=== PATIENT | female | born 1955 | race American Indian/Alaskan Native ===

== ENCOUNTER 2016-10-24 01:02 | Emergency (ER) | payer MEDICAID ==
[2016-10-24 02:38] LABS: Basophils % (Auto) 0.8 % (0.0-1.8); Eosinophils % (Auto) 3.5 % (0.0-4.3); Hematocrit 41.1 % (30.3-42.9); Hemoglobin 12.9 gm/dl (10.1-14.3); Mean Corpuscular HGB Conc 31 % (30-34); Mean Corpuscular Volume 75 fl (79-97); Platelet Count 243 K/mm3 (140-440); Red Cell Distribution Width 14.3 % (13.2-15.2); White Blood Count 7.8 K/mm3 (4.5-11.0)
[2016-10-24 03:00] LABS: BUN/Creatinine Ratio 26.66; Blood Urea Nitrogen 24 mg/dL (7-17); Calcium 9.9 mg/dL (8.4-10.2); Carbon Dioxide 26 mmol/L (22-30); Chloride 100.1 mmol/L (98-107); Glucose 233 mg/dL (65-100); Mean Corpuscular Hemoglobin 24 pg (28-32); Potassium 4.4 mmol/L (3.6-5.0); Sodium 143 mmol/L (137-145)
[2016-10-24 04:14] LABS: Anion Gap 21 mmol/L
--- NOTE | 2016-10-24 09:47 | XRay Report ---
CHEST TWO VIEWS: 10/24/16 01:02:00 CLINICAL: Shortness of breath. COMPARISON: 09/03/13 FINDINGS: Normal heart and pulmonary vasculature. Numerous bilateral hilar and mediastinal calcified granulomata are unchanged compared to the previous exam. The lungs are normally expanded and clear. The bones and soft tissues are normal. IMPRESSION: Old granulomatous disease.No acute cardiopulmonary process.
[2016-10-24] MEDS ORDERED: ZESTRIL PO ONE (10:15)
[2016-10-24] MEDS ORDERED: HCTZ PO ONE (10:15)
--- NOTE | 2016-10-24 10:19 | Emergency Department Report ---
ED General Adult HPI - General Chief complaint: Dyspnea/Respdistress Stated complaint: DIZZY/WEAKNESS/CHEST FLUTTER/WEAKNESS Time Seen by Provider: 10/24/16 10:04 Source: patient Mode of arrival: Ambulatory Limitations: No Limitations - History of Present Illness Initial comments: 61-year-old female presents to the emergency department complaining of approximately 5 days of nasal congestion, body aches, lightheadedness, chest fluttering, and cough. Cough has been nonproductive. She denies fever or chills. Patient states that she has not loss consciousness. She does report that her blood sugars have been running high. Symptoms became worse yesterday and the patient came to the hospital for evaluation. There are no other complaints. -: Gradual, days(s) (5) Severity scale (0 -10): 0 Consistency: constant Improves with: none Worsens with: none Treatments Prior to Arrival: none - Related Data Home Medications Medication Instructions Recorded Confirmed Last Taken Simvastatin [Zocor TAB] 20 mg PO QHS 10/24/16 10/24/16 10/23/16 Previous Rx's Medication Instructions Recorded Last Taken Type Lisinopril/Hydrochlorothiazide 1 tab PO DAILY #30 tablet 10/11/14 10/23/16 Rx [Zestoretic 20-25 mg] metFORMIN [Glucophage] 500 mg PO BID #60 tablet 10/11/14 10/23/16 Rx Naproxen [Naprosyn TAB] 500 mg PO BID #20 tablet 03/18/15 10/23/16 Rx traMADol [Ultram 50 MG tab] 50 mg PO Q8H PRN #30 tablet 03/18/15 Unknown Rx Azithromycin [Zithromax Z-CROW] 250 mg PO DAILY #6 tablet 10/24/16 Unknown Rx Benzonatate [Tessalon Perles] 100 mg PO Q8HR #20 capsule 10/24/16 Unknown Rx Glimepiride [Amaryl] 4 mg PO BID #60 tablet 10/24/16 Unknown Rx traMADol [Ultram 50 MG tab] 50 mg PO TID PRN #20 tablet 10/24/16 Unknown Rx Allergies Allergy/AdvReac Type Severity Reaction Status Date / Time No Known Allergies Allergy Verified 10/15/16 11:15 ED Review of Systems ROS: Stated complaint: DIZZY/WEAKNESS/CHEST FLUTTER/WEAKNESS Other details as noted in HPI Comment: All other systems reviewed and negative ENT: congestion Respiratory: cough Cardiovascular: palpitations, syncope (lightheadedness only) Musculoskeletal: myalgia ED Past Medical Hx - Past Medical History Previous Medical History?: Yes Hx Hypertension: Yes Hx CVA: No Hx Heart Attack/AMI: No Hx Congestive Heart Failure: No Hx Diabetes: Yes Hx Deep Vein Thrombosis: No Hx Pulmonary Embolism: No Hx GERD: No Hx Liver Disease: No Hx Renal Disease: No Hx Sickle Cell Disease: No Hx Arthritis: Yes Hx Headaches / Migraines: No Hx Seizures: No Hx Kidney Stones: No Hx Psychiatric Treatment: No Hx Asthma: No Hx COPD: No Hx Tuberculosis: No Hx Dementia: No Hx HIV: No Additional medical history: SARCODOSIS - Surgical History Past Surgical History?: Yes Hx Coronary Stent: No Hx Open Heart Surgery: No Hx Pacemaker: No Hx Internal Defibrillator: No Hx Cholecystectomy: No Hx Appendectomy: No Hx Breast Surgery: No Additional Surgical History: TUBAL LIGATION - Family History Family history: no significant - Social History Smoking Status: Never Smoker Substance Use Type: Prescribed, Other - Medications Home Medications: Home Medications Medication Instructions Recorded Confirmed Last Taken Type Lisinopril/Hydrochlorothiazide 1 tab PO DAILY #30 tablet 10/11/14 10/24/1610/23 Rx [Zestoretic 20-25 mg] metFORMIN [Glucophage] 500 mg PO BID #60 tablet 10/11/14 10/24/16 10/23/16 Rx Naproxen [Naprosyn TAB] 500 mg PO BID #20 tablet 03/18/15 10/24/16 10/23/16 Rx traMADol [Ultram 50 MG tab] 50 mg PO Q8H PRN #30 tablet 03/18/15 Unknown Rx Azithromycin [Zithromax Z-CROW] 250 mg PO DAILY #6 tablet 10/24/16 Unknown Rx Benzonatate [Tessalon Perles] 100 mg PO Q8HR #20 capsule 10/24/16 Unknown Rx Glimepiride [Amaryl] 4 mg PO BID #60 tablet 10/24/16 Unknown Rx Simvastatin [Zocor TAB] 20 mg PO QHS 10/24/16 10/24/16 10/23/16 History traMADol [Ultram 50 MG tab] 50 mg PO TID PRN #20 tablet 10/24/16 Unknown Rx ED Physical Exam - General Limitations: No Limitations General appearance: alert, in no apparent distress - Head Head exam: Present: atraumatic, normocephalic - Eye Eye exam: Present: normal appearance, PERRL, EOMI - ENT ENT exam: Present: normal exam, normal orophraynx, mucous membranes moist - Neck Neck exam: Present: normal inspection, full ROM. Absent: tenderness - Respiratory Respiratory exam: Present: normal lung sounds bilaterally. Absent: respiratory distress - Cardiovascular Cardiovascular Exam: Present: normal rhythm, tachycardia, normal heart sounds - GI/Abdominal GI/Abdominal exam: Present: soft, normal bowel sounds. Absent: distended, tenderness - Extremities Exam Extremities exam: Present: normal inspection, full ROM. Absent: tenderness - Back Exam Back exam: Present: normal inspection, full ROM. Absent: tenderness - Neurological Exam Neurological exam: Present: alert, oriented X3. Absent: motor sensory deficit - Skin Skin exam: Present: warm, dry, intact ED Course Vital Signs 10/24/16 10/24/16 10/24/16 01:20 09:14 09:24 Temperature 98.6 F 98.2 F Pulse Rate 111 H 102 H 105 H Respiratory 10 L 20 Rate Blood Pressure 155/97 Blood Pressure 156/88 [Right] O2 Sat by Pulse 100 100 100 Oximetry 10/24/16 10/24/16 10/24/16 10:00 10:32 10:45 Temperature Pulse Rate 97 H 96 H 96 H Respiratory 12 Rate Blood Pressure 149/82 148/79 Blood Pressure [Right] O2 Sat by Pulse 100 Oximetry ED Medical Decision Making - Lab Data Result diagrams: 10/24/16 02:25 10/24/16 02:25 - EKG Data -: EKG Interpreted by [facility] EKG shows normal: sinus rhythm, axis, ST-T waves Rate: tachycardia - EKG Data When compared to previous EKG there are: no significant change Interpretation: unchanged when compared t (09/03/2013), other (sinus tachycardia with right bundle branch block) - Radiology Data Radiology results: report reviewed, image reviewed Chest x-ray reveals old granulomatous disease changes with no acute cardiopulmonary abnormality. - Medical Decision Making Lab and imaging results reviewed and discussed with the patient. Patient will be discharged home at this time supportive care. Due to the patient's comorbidities including diabetes and sarcoidosis, the patient will be placed on a Z-Crow. Refills also been prescribed for the patient's glyburide and ultram. - Differential Diagnosis pneumonia, acute bronchitis, atypical chest pain Critical care attestation.: If time is entered above; I have spent that time in minutes in the direct care of this critically ill patient, excluding procedure time. ED Disposition Clinical Impression: Acute bronchitis Qualifiers: Bronchitis organism: unspecified organism Qualified Code(s): J20.9 - Acute bronchitis, unspecified Disposition: DISCHARGED TO HOME OR SELFCARE Is pt being admited?: No Condition: Stable Instructions: Acute Bronchitis (ED) Prescriptions: Glimepiride [Amaryl] 4 mg PO BID #60 tablet Benzonatate [Tessalon Perles] 100 mg PO Q8HR #20 capsule traMADol [Ultram 50 MG tab] 50 mg PO TID PRN #20 tablet PRN Reason: Pain Azithromycin [Zithromax Z-CROW] 250 mg PO DAILY #6 tablet Referrals: PRIMARY CARE, [Primary Care Provider] - 3-5 Days Time of Disposition: 11:18
[2016-10-24 11:34] VITALS: BP 124/78
== END 2016-10-24 11:34 | disposition home or self-care (01) ==
LOC: ED 01:02
DX: J20.9 Acute bronchitis, unspecified (principal); I10 Essential (primary) hypertension; E11.9 Type 2 diabetes mellitus without complications; M19.90 Unspecified osteoarthritis, unspecified site; Z98.51 Tubal ligation status
CPT/HCPCS: 36415; 71020; 80048; 82962; 84443; 84484; 85025; 99284

== ENCOUNTER 2017-05-14 17:26 | Emergency (ER) | payer MEDICAID ==
[2017-05-14 20:16] VITALS: BP 140/91
[2017-05-14] MEDS ORDERED: NORCO 5/325 PO ONE (20:48)
--- NOTE | 2017-05-14 21:13 | Emergency Department Report ---
ED General Adult HPI - General Chief complaint: Pain General Stated complaint: HIP BACK PAIN Time Seen by Provider: 05/14/17 20:21 Source: patient Mode of arrival: Ambulatory Limitations: No Limitations - History of Present Illness Initial comments: 62-year-old female with a past medical history of arthritis, diabetes, hypertension, sarcoidosis, and chronic pain presents to the hospital with complaints of generalized arthralgias. Patient has pain to right hip, lower back, and multiple joints. Similar pain in the past secondary to arthritis. Patient takes tramadol 50 mg as needed for pain. Patient has been slicing the medication and have been noted to make it last longer. She ran out of the medication 3 days ago. Since then her pain has worsened causing a decrease in her appetite and elevation in her blood pressure. No reports of fever, chills, or dysuria. Patient is scheduled to see a pain management doctor on May 27. She has been taking Naprosyn without relief since running out of tramadol. Pain is rated 9/10 in intensity, constant, aching, and worse and movement. Patient states she's been taking tramadol for pain since 1993. Severity scale (0 -10): 10 - Related Data Home Medications Medication Instructions Recorded Confirmed Last Taken Loratadine 10 mg PO DAILY 05/14/17 05/14/17 Unknown metFORMIN [Glucophage] 1,000 mg PO BID 05/14/17 05/14/17 Unknown Previous Rx's Medication Instructions Recorded Last Taken Type Lisinopril/Hydrochlorothiazide 1 tab PO DAILY #30 tablet 10/11/14 10/23/16 Rx [Zestoretic 20-25 mg] Naproxen [Naprosyn TAB] 500 mg PO BID #20 tablet 03/18/15 10/23/16 Rx Glimepiride [Amaryl] 4 mg PO BID #60 tablet 10/24/16 Unknown Rx traMADol [Ultram 50 MG tab] 50 mg PO TID PRN #30 tablet 05/14/17 Unknown Rx Allergies Allergy/AdvReac Type Severity Reaction Status Date / Time No Known Allergies Allergy Verified 10/15/16 11:15 ED Review of Systems ROS: Stated complaint: HIP BACK PAIN Other details as noted in HPI Comment: All other systems reviewed and negative Other: Constitutional: No fevers chills Eyes: No eye pain visual changes ENT: No ear pain or throat pain Neck: Denies pain Respiratory: Denies cough wheezing shortness of breath Cardiovascular: Denies chest pain, palpitations, syncope GI: Denies abdominal pain : Denies dysuria Musculoskeletal: As per HPI Skin: Denies rash, lesions, erythema Neurologic: Denies headache, numbness, weakness Psychiatric: Denies suicidal ideation, hallucinations ED Past Medical Hx - Past Medical History Hx Hypertension: Yes Hx CVA: No Hx Heart Attack/AMI: No Hx Congestive Heart Failure: No Hx Diabetes: Yes Hx Deep Vein Thrombosis: No Hx Pulmonary Embolism: No Hx GERD: No Hx Liver Disease: No Hx Renal Disease: No Hx Sickle Cell Disease: No Hx Arthritis: Yes Hx Headaches / Migraines: No Hx Seizures: No Hx Kidney Stones: No Hx Psychiatric Treatment: No Hx Asthma: No Hx COPD: No Hx Tuberculosis: No Hx Dementia: No Hx HIV: No Additional medical history: SARCODOSIS - Surgical History Hx Coronary Stent: No Hx Open Heart Surgery: No Hx Pacemaker: No Hx Internal Defibrillator: No Hx Cholecystectomy: No Hx Appendectomy: No Hx Breast Surgery: No Additional Surgical History: TUBAL LIGATION - Social History Smoking Status: Never Smoker Substance Use Type: None - Medications Home Medications: Home Medications Medication Instructions Recorded Confirmed Last Taken Type Lisinopril/Hydrochlorothiazide 1 tab PO DAILY #30 tablet 10/11/14 05/14/1710/23 Rx [Zestoretic 20-25 mg] Naproxen [Naprosyn TAB] 500 mg PO BID #20 tablet 03/18/15 05/14/17 10/23/16 Rx Glimepiride [Amaryl] 4 mg PO BID #60 tablet 10/24/16 05/14/17 Unknown Rx Loratadine 10 mg PO DAILY 05/14/17 05/14/17 Unknown History metFORMIN [Glucophage] 1,000 mg PO BID 05/14/17 05/14/17 Unknown History traMADol [Ultram 50 MG tab] 50 mg PO TID PRN #30 tablet 05/14/17 Unknown Rx ED Physical Exam - General Limitations: No Limitations - Other Other exam information: General: No limitations, no acute distress Head exam: Atraumatic, normocephalic Eyes exam: Normal appearance ENT: Moist mucous membrane, normal oropharynx Neck exam: Normal inspection, full range of motion, no meningismus nontender Respiratory exam: Clear to auscultation bilateral, no wheezes, rales, crackles Cardiovascular: Normal rate and rhythm, normal heart sounds Abdomen: Soft, nondistended, and nontender, with normal bowel sounds, no rebound, or guarding Extremity: Full range of motion normal inspection no deformity Back: Normal Inspection, full range of motion, no tenderness Neurologic: Alert, oriented x3, cranial nerves intact, no motor or sensory deficit Psychiatric: normal affect, normal mood Skin: Warm, dry, intact ED Course Vital Signs 05/14/17 05/14/17 05/14/17 17:58 20:15 20:26 Temperature 98.7 F 98.4 F Pulse Rate 100 H 97 H Respiratory 18 18 18 Rate Blood Pressure 178/86 Blood Pressure 178/86 140/91 [Left] O2 Sat by Pulse 100 99 99 Oximetry 05/14/17 21:00 Temperature Pulse Rate Respiratory 18 Rate Blood Pressure Blood Pressure [Left] O2 Sat by Pulse Oximetry - Reevaluation(s) Reevaluation #1: 05/14/17 21:13 Arnold provided for pain in the ED 05/14/17 21:21 glu 144 ED Medical Decision Making - Differential Diagnosis arthralgias, chronic pain, medication withdrawal, hyperglycemia Critical Care Time: No Critical care attestation.: If time is entered above; I have spent that time in minutes in the direct care of this critically ill patient, excluding procedure time. ED Disposition Clinical Impression: Arthralgia, Arthritis, Chronic pain, Medication refill Disposition: TO HOME OR SELFCARE Is pt being admited?: No Does the pt Need Aspirin: No Condition: Stable Instructions: Osteoarthritis (ED), Chronic Pain (ED) Additional Instructions: Take the medication as prescribed. Follow up with your pain management doctor as scheduled. Also follow with your primary care doctor Prescriptions: traMADol [Ultram 50 MG tab] 50 mg PO TID PRN #30 tablet PRN Reason: Pain Referrals: NAYAN MICHAEL MD [Primary Care Provider] - 3-5 Days pain md noemy [Other] - 3-5 Days (as scheduled) Time of Disposition: 21:23
== END 2017-05-14 21:33 | disposition home or self-care (01) ==
LOC: ED 17:26
DX: M25.50 Pain in unspecified joint (principal); G89.29 Other chronic pain; I10 Essential (primary) hypertension; E11.9 Type 2 diabetes mellitus without complications
CPT/HCPCS: 82962

== ENCOUNTER 2017-05-27 15:41 | Emergency (ER) | payer MEDICAID ==
[2017-05-27 16:51] VITALS: BP 174/96
[2017-05-27] MEDS ORDERED: ULTRAM PO ONE (17:41)
--- NOTE | 2017-05-27 17:49 | Emergency Department Report ---
ED General Adult HPI - General Chief complaint: Pain General Stated complaint: PAIN TOE Time Seen by Provider: 05/27/17 17:10 Source: patient Mode of arrival: Ambulatory Limitations: No Limitations - History of Present Illness Initial comments: pt is a 62 y/o aaf with hx of chronic back and bilat LE pain, and htn, and dmII , who presents for chronic back and bilat LE pain , this is a chronic condition of pat 5 yrs pt currently rx tramadol po qid prn pain , pt denies new fall injury or trauma no weakness no numbness no tingling no loss or decrease in bowel or bladder function, pt presents to ed today request refill for pain medication as she was unable to see pcp for refill, will see pcp and pain management on next week Dr. [facility] was advised by pain management to present to ed until follow on next week. Onset/Timin (chronic x 5 yrs ) Location: back, lower extremity Radiation: distal Severity scale (0 -10): 4 Quality: aching Consistency: intermittent Improves with: none Worsens with: other (bending twisting) Associated Symptoms: denies: fever/chills, loss of appetite, malaise, nausea/ vomiting, rash, seizure, weakness Treatments Prior to Arrival: none - Related Data Home Medications Medication Instructions Recorded Confirmed Last Taken Loratadine 10 mg PO DAILY 05/14/17 05/14/17 Unknown metFORMIN [Glucophage] 1,000 mg PO BID 05/14/17 05/14/17 Unknown Previous Rx's Medication Instructions Recorded Last Taken Type Lisinopril/Hydrochlorothiazide 1 tab PO DAILY #30 tablet 10/11/14 10/23/16 Rx [Zestoretic 20-25 mg] Naproxen [Naprosyn TAB] 500 mg PO BID #20 tablet 03/18/15 10/23/16 Rx Glimepiride [Amaryl] 4 mg PO BID #60 tablet 10/24/16 Unknown Rx traMADol [Ultram 50 MG tab] 50 mg PO TID PRN #30 tablet 05/14/17 Unknown Rx Acetaminophen [Acetaminophen TAB] 500 mg PO Q6HR PRN #60 tablet 05/27/17 Unknown Rx Diclofenac Sodium [Voltaren] 100 gm TP TID #1 tube 05/27/17 Unknown Rx traMADol [Ultram 50 MG tab] 50 mg PO Q8HR PRN #10 tablet 05/27/17 Unknown Rx Allergies Allergy/AdvReac Type Severity Reaction Status Date / Time No Known Allergies Allergy Verified 10/15/16 11:15 ED Review of Systems ROS: Stated complaint: PAIN TOE Other details as noted in HPI Constitutional: denies: chills, fever Eyes: denies: eye pain, eye discharge, vision change ENT: denies: ear pain, throat pain Respiratory: denies: cough, shortness of breath, wheezing Cardiovascular: denies: chest pain, palpitations Endocrine: no symptoms reported Gastrointestinal: denies: abdominal pain, nausea, diarrhea Genitourinary: denies: urgency, dysuria, discharge Musculoskeletal: back pain, arthralgia, myalgia Skin: denies: rash, lesions Neurological: denies: headache, weakness, numbness, paresthesias, confusion, abnormal gait, vertigo Psychiatric: denies: anxiety, depression Hematological/Lymphatic: denies: easy bleeding, easy bruising ED Past Medical Hx - Past Medical History Hx Hypertension: Yes Hx CVA: No Hx Heart Attack/AMI: No Hx Congestive Heart Failure: No Hx Diabetes: Yes Hx Deep Vein Thrombosis: No Hx Pulmonary Embolism: No Hx GERD: No Hx Liver Disease: No Hx Renal Disease: No Hx Sickle Cell Disease: No Hx Arthritis: Yes Hx Headaches / Migraines: No Hx Seizures: No Hx Kidney Stones: No Hx Psychiatric Treatment: No Hx Asthma: No Hx COPD: No Hx Tuberculosis: No Hx Dementia: No Hx HIV: No Additional medical history: SARCODOSIS - Surgical History Hx Coronary Stent: No Hx Open Heart Surgery: No Hx Pacemaker: No Hx Internal Defibrillator: No Hx Cholecystectomy: No Hx Appendectomy: No Hx Breast Surgery: No Additional Surgical History: TUBAL LIGATION - Social History Smoking Status: Never Smoker Substance Use Type: None - Medications Home Medications: Home Medications Medication Instructions Recorded Confirmed Last Taken Type Lisinopril/Hydrochlorothiazide 1 tab PO DAILY #30 tablet 10/11/14 05/14/1710/23 Rx [Zestoretic 20-25 mg] Naproxen [Naprosyn TAB] 500 mg PO BID #20 tablet 03/18/15 05/14/17 10/23/16 Rx Glimepiride [Amaryl] 4 mg PO BID #60 tablet 10/24/16 05/14/17 Unknown Rx Loratadine 10 mg PO DAILY 05/14/17 05/14/17 Unknown History metFORMIN [Glucophage] 1,000 mg PO BID 05/14/17 05/14/17 Unknown History traMADol [Ultram 50 MG tab] 50 mg PO TID PRN #30 tablet 05/14/17 Unknown Rx Acetaminophen [Acetaminophen TAB] 500 mg PO Q6HR PRN #60 tablet 05/27/17 Unknown Rx Diclofenac Sodium [Voltaren] 100 gm TP TID #1 tube 05/27/17 Unknown Rx traMADol [Ultram 50 MG tab] 50 mg PO Q8HR PRN #10 tablet 05/27/17 Unknown Rx ED Physical Exam - General Limitations: No Limitations General appearance: alert, in no apparent distress - Head Head exam: Present: atraumatic, normocephalic, normal inspection - Eye Eye exam: Present: normal appearance - ENT ENT exam: Present: mucous membranes moist - Neck Neck exam: Present: normal inspection, full ROM. Absent: tenderness, lymphadenopathy, thyromegaly - Respiratory Respiratory exam: Present: normal lung sounds bilaterally, accessory muscle use. Absent: respiratory distress, wheezes, stridor, chest wall tenderness - Cardiovascular Cardiovascular Exam: Present: regular rate, normal rhythm. Absent: systolic murmur, diastolic murmur, rubs, gallop - GI/Abdominal GI/Abdominal exam: Present: soft, normal bowel sounds - Rectal Rectal exam: Present: deferred - Extremities Exam Extremities exam: Present: normal inspection, full ROM, normal capillary refill. Absent: tenderness, pedal edema, joint swelling, calf tenderness - Expanded Lower Extremity Exam Right Hip exam: Present: full ROM. Absent: tenderness Upper Leg exam: Present: normal inspection, full ROM. Absent: tenderness Knee exam: Present: normal inspection. Absent: tenderness Lower Leg exam: Present: normal inspection, full ROM. Absent: tenderness, swelling, abrasion, laceration, ecchymosis, deformity, crepidus, dislocation, erythema, palpable cord, Maged's sign Ankle exam: Present: normal inspection, full ROM Foot/Toe exam: Present: normal inspection, full ROM Neuro vascular tendon exam: Present: no vascular compromise. Absent: pulse deficit, abnormal cap refill, motor deficit, sensory deficit, tendon deficit, extremity cold to touch, pallor, abnormal 2-point discrimination, decreased fine /light touch, foot drop, peroneal nerve deficit, significant pain with passive ROM of distal joint Gait: Positive: observed and normal - Back Exam Back exam: Present: normal inspection, full ROM, paraspinal tenderness (right mild paraspinus muscle tendereness to deep palpation, positive straight leg right rom intact ). Absent: tenderness, CVA tenderness (R), CVA tenderness (L) , muscle spasm, vertebral tenderness, rash noted - Expanded Back Exam Expanded Back exam: Absent: saddle anesthesia Back exam: Sciatic Notch Tenderness: Right, Positive Straight Leg Raise: Right, Negative Straight Leg Raising: Left - Neurological Exam Neurological exam: Present: alert, oriented X3 - Expanded Neurological Exam Expanded Patient oriented to: Present: person, place, time Speech: Present: fluid speech Cranial nerves: EOM's Intact: Normal, Gag Reflex: Normal, Tongue Deviation: Normal, Nystagmus: Normal, Facial Sensation: Normal Cerebellar function: Finger to Nose: Normal, Heel to Cox: Normal, Romberg: Normal Upper motor neuron: Alex Neglect: Normal, Pronator Drift: Normal, Babinski Sign : Normal, Sensory Extinction: Normal Sensory exam: Upper Extremity Light Touch: Normal, Upper Extremity Pin Prick: Normal, Upper Extremity Temperature: Normal, UE 2 Point Discrimination: Normal, Lower Extremity Light Touch: Normal, Lower Extremity Pin Prick: Normal, Lower Extremity Temperature: Normal, LE 2 Point Discrimination: Normal Motor strength exam: RUE: 5, LUE: 5, RLE: 5, LLE: 5 DTR: bicep (R): 2+, bicep (L): 2+, tricep (R): 2+, tricep (L): 2+, knee (R): 2+ , knee (L): 2+, ankle (R): 2+, ankle (L): 2+ Best Eye Response (Lignite): (4) open spontaneously Best Motor Response (Janene): (6) obeys commands Best Verbal Response (Lignite): (5) oriented [place]ite Total: 15 - Psychiatric Psychiatric exam: Present: normal affect, normal mood - Skin Skin exam: Present: warm, dry, intact, normal color. Absent: rash ED Course Vital Signs 05/27/17 16:46 Temperature 97.9 F Pulse Rate 102 H Respiratory 18 Rate Blood Pressure 174/96 Blood Pressure 174/96 [Right] O2 Sat by Pulse 100 Oximetry ED Medical Decision Making - Medical Decision Making pt is aa 62 y/o aaf who presents for medication refill for tramdol po rx for chronic low back pain for past 5 yrs pt has pending pain management and pcp follow up in 3 days pt denies new fall injury or trauma exam: mild right paraspinus muscle pain to deep palpation pt remain ambulatory to baseline no dysuria frequency or urgency no cva tenderness , pt is decreased to 3/10 with po ultram given in ed plan dc to self with tramadal 10 tabs until pain management follow up next week pt will follow up with [facility] repeat v/s hr 90, bp: 167/81, resp:16 temp: 98.3 pain 2/10 pt for dc to self at this time pt verbalized agreement and understanding of discharge plan. Critical care attestation.: If time is entered above; I have spent that time in minutes in the direct care of this critically ill patient, excluding procedure time. ED Disposition Clinical Impression: Chronic low back pain Qualifiers: Back pain laterality: right Sciatica presence: with sciatica Sciatica laterality: sciatica of right side Qualified Code(s): M54.41 - Lumbago with sciatica, right side; G89.29 - Other chronic pain Disposition: DC-01 TO HOME OR SELFCARE Is pt being admited?: No Does the pt Need Aspirin: No Condition: Good Additional Instructions: follow up with as scheduled [facility] [phone] Prescriptions: Acetaminophen [Acetaminophen TAB] 500 mg PO Q6HR PRN #60 tablet PRN Reason: pain Diclofenac Sodium [Voltaren] 100 gm TP TID #1 tube traMADol [Ultram 50 MG tab] 50 mg PO Q8HR PRN #10 tablet PRN Reason: Pain Referrals: PRIMARY CARE,MD [Primary Care Provider] - 3-5 Days Forms: Work/School Release Form(ED) Time of Disposition: 18:11
== END 2017-05-27 18:38 | disposition home or self-care (01) ==
LOC: ED 15:41
DX: M54.41 Lumbago with sciatica, right side (principal); G89.29 Other chronic pain; I10 Essential (primary) hypertension
CPT/HCPCS: 99282

== ENCOUNTER 2017-10-09 18:14 | Emergency (ER) | payer MEDICAID ==
[2017-10-09 18:22] VITALS: BP 160/79
--- NOTE | 2017-10-09 19:08 | Emergency Department Report ---
ED General Adult HPI - General Chief complaint: Pain General Stated complaint: GENERALIZED PAIN Time Seen by Provider: 10/09/17 18:54 Source: patient, family Mode of arrival: Ambulatory Limitations: No Limitations - History of Present Illness Initial comments: 62-year-old -[place] female comes in for generalized pains has a history of arthritis anxiety of flutter. Patient reports she is out of her hydrocodone and she reports that her doctor which is more clearly was Mahesh from [facility] refused to refill her pain medication she was told to see pain management doctor. Patient reports that she she was only taking hydrocodone taken the tramadol which she has on her current medication list. Patient denies any recent traumas no falls. - Related Data Home Medications Medication Instructions Recorded Confirmed Last Taken Loratadine 10 mg PO DAILY 05/14/17 05/14/17 Unknown metFORMIN [Glucophage] 1,000 mg PO BID 05/14/17 05/14/17 Unknown Previous Rx's Medication Instructions Recorded Last Taken Type Lisinopril/Hydrochlorothiazide 1 tab PO DAILY #30 tablet 10/11/14 10/23/16 Rx [Zestoretic 20-25 mg] Naproxen [Naprosyn TAB] 500 mg PO BID #20 tablet 03/18/15 10/23/16 Rx Glimepiride [Amaryl] 4 mg PO BID #60 tablet 10/24/16 Unknown Rx traMADol [Ultram 50 MG tab] 50 mg PO TID PRN #30 tablet 05/14/17 Unknown Rx Acetaminophen [Acetaminophen TAB] 500 mg PO Q6HR PRN #60 tablet 05/27/17 Unknown Rx Diclofenac Sodium [Voltaren] 100 gm TP TID #1 tube 05/27/17 Unknown Rx traMADol [Ultram 50 MG tab] 50 mg PO Q8HR PRN #10 tablet 05/27/17 Unknown Rx Acetaminophen [Tylenol Arthritis] 650 mg PO Q8H #30 tablet.er 10/09/17 Unknown Rx Ibuprofen 600 mg PO Q8H #30 tablet 10/09/17 Unknown Rx Allergies Allergy/AdvReac Type Severity Reaction Status Date / Time No Known Allergies Allergy Verified 10/15/16 11:15 ED Review of Systems ROS: Stated complaint: GENERALIZED PAIN Other details as noted in HPI Comment: generalized pain Constitutional: denies: chills, fever Eyes: denies: eye pain, eye discharge, vision change ENT: denies: ear pain, throat pain Respiratory: denies: cough, shortness of breath, wheezing Cardiovascular: denies: chest pain, palpitations Endocrine: no symptoms reported Gastrointestinal: denies: abdominal pain, nausea, diarrhea Genitourinary: denies: urgency, dysuria, discharge Musculoskeletal: denies: back pain, joint swelling, arthralgia Skin: denies: rash, lesions Neurological: denies: headache, weakness, paresthesias Psychiatric: denies: anxiety, depression Hematological/Lymphatic: denies: easy bleeding, easy bruising ED Past Medical Hx - Past Medical History Hx Hypertension: Yes Hx CVA: No Hx Heart Attack/AMI: No Hx Congestive Heart Failure: No Hx Diabetes: Yes Hx Deep Vein Thrombosis: No Hx Pulmonary Embolism: No Hx GERD: No Hx Liver Disease: No Hx Renal Disease: No Hx Sickle Cell Disease: No Hx Arthritis: Yes Hx Headaches / Migraines: No Hx Seizures: No Hx Kidney Stones: No Hx Psychiatric Treatment: No Hx Asthma: No Hx COPD: No Hx Tuberculosis: No Hx Dementia: No Hx HIV: No Additional medical history: SARCODOSIS - Surgical History Hx Coronary Stent: No Hx Open Heart Surgery: No Hx Pacemaker: No Hx Internal Defibrillator: No Hx Cholecystectomy: No Hx Appendectomy: No Hx Breast Surgery: No Additional Surgical History: TUBAL LIGATION - Social History Smoking Status: Never Smoker Substance Use Type: None - Medications Home Medications: Home Medications Medication Instructions Recorded Confirmed Last Taken Type Lisinopril/Hydrochlorothiazide 1 tab PO DAILY #30 tablet 10/11/14 05/14/1710/23 Rx [Zestoretic 20-25 mg] Naproxen [Naprosyn TAB] 500 mg PO BID #20 tablet 03/18/15 05/14/17 10/23/16 Rx Glimepiride [Amaryl] 4 mg PO BID #60 tablet 10/24/16 05/14/17 Unknown Rx Loratadine 10 mg PO DAILY 05/14/17 05/14/17 Unknown History metFORMIN [Glucophage] 1,000 mg PO BID 05/14/17 05/14/17 Unknown History traMADol [Ultram 50 MG tab] 50 mg PO TID PRN #30 tablet 05/14/17 Unknown Rx Acetaminophen [Acetaminophen TAB] 500 mg PO Q6HR PRN #60 tablet 05/27/17 Unknown Rx Diclofenac Sodium [Voltaren] 100 gm TP TID #1 tube 05/27/17 Unknown Rx traMADol [Ultram 50 MG tab] 50 mg PO Q8HR PRN #10 tablet 05/27/17 Unknown Rx Acetaminophen [Tylenol Arthritis] 650 mg PO Q8H #30 tablet.er 10/09/17 Unknown Rx Ibuprofen 600 mg PO Q8H #30 tablet 10/09/17 Unknown Rx ED Physical Exam - General Limitations: No Limitations General appearance: alert, in no apparent distress - Head Head exam: Present: atraumatic, normocephalic - Neck Neck exam: Present: normal inspection - Respiratory Respiratory exam: Present: normal lung sounds bilaterally. Absent: respiratory distress - Cardiovascular Cardiovascular Exam: Present: regular rate, normal rhythm. Absent: systolic murmur, diastolic murmur, rubs, gallop - GI/Abdominal GI/Abdominal exam: Present: soft, normal bowel sounds - Extremities Exam Extremities exam: Present: normal inspection - Back Exam Back exam: Present: normal inspection ED Course Vital Signs 10/09/17 18:17 Temperature 98.3 F Pulse Rate 128 H Blood Pressure 160/79 O2 Sat by Pulse 99 Oximetry ED Medical Decision Making - Medical Decision Making Patient was evaluated by this provider faster. I discussed with patient that she is to follow up pain management. Review of the [employer] task force showed that she's had tramadol and hydrocodone in the last 30 days. Discussed the patient that's why her primary care provider referred her to pain management. The more suitable to control and manage her pain. Patient verbalized understanding. Critical care attestation.: If time is entered above; I have spent that time in minutes in the direct care of this critically ill patient, excluding procedure time. ED Disposition Clinical Impression: Generalized pain Disposition: DC-01 TO HOME OR SELFCARE Is pt being admited?: No Does the pt Need Aspirin: No Condition: Stable Instructions: Pain Management in the Elderly (ED) Additional Instructions: It's very important for you to follow-up with pain management. Please take the pain medication that I prescribe. Follow-up with her primary care doctor which is Dr. Lamb Prescriptions: Acetaminophen [Tylenol Arthritis] 650 mg PO Q8H #30 tablet.er Ibuprofen 600 mg PO Q8H #30 tablet Referrals: PRIMARY CARE, [Primary Care Provider] - 3-5 Days NAHEED LAWRENCE MD [Referring] - 3-5 Days INDIA NEAL MD [Referring] - 3-5 Days HUONG MANUEL MD [Referring] - 3-5 Days JEROME LAMB MD [Referring] - 3-5 Days
== END 2017-10-09 19:20 | disposition home or self-care (01) ==
LOC: ED 18:14
DX: M79.1 Myalgia (principal); E11.9 Type 2 diabetes mellitus without complications; M19.90 Unspecified osteoarthritis, unspecified site
CPT/HCPCS: 99282

== ENCOUNTER 2019-07-06 05:18 | Emergency (ER) | payer MEDICAID ==
[2019-07-06 06:06] VITALS: BP 172/85
[2019-07-06 06:29] LABS: Basophils # (Auto) 0.1 K/mm3 (0.0-0.1); Basophils % (Auto) 1.1 % (0.0-1.8); Eosinophils # (Auto) 0.2 K/mm3 (0.0-0.4); Eosinophils % (Auto) 3.7 % (0.0-4.3); Hemoglobin 11.7 gm/dl (10.1-14.3); Lymphocytes # (Auto) 2.6 K/mm3 (1.2-5.4); Mean Corpuscular HGB Conc 32 % (30-34); Mean Corpuscular Volume 76 fl (79-97); Monocytes # (Auto) 0.5 K/mm3 (0.0-0.8); Monocytes % (Auto) 7.6 % (0.0-7.3); Platelet Count 233 K/mm3 (140-440); Red Blood Count 4.86 M/mm3 (3.65-5.03); Red Cell Distribution Width 14.8 % (13.2-15.2)
[2019-07-06 06:51] LABS: BUN/Creatinine Ratio 19; Blood Urea Nitrogen 17 mg/dL (7-17); Calcium 10.1 mg/dL (8.4-10.2); Hemolysis Index 5
--- NOTE | 2019-07-06 08:04 | Emergency Department Report ---
ED General Adult HPI - General Chief complaint: Hyperglycemia Stated complaint: HIGH BLOOD SUGAR/FEET TINGLING Time Seen by Provider: 07/06/19 07:51 Source: patient Mode of arrival: Ambulatory Limitations: No Limitations - History of Present Illness Initial comments: Patient is a 64-year-old female that presents emergency room with complaints of high blood sugar. Patient states she ran out of her Amaryl. States taking Amaryl 4 mg twice a day. Patient states she has not been able to get in with her primary care. Patient states she runs out her diabetes medication her feet started to tingle. Patient denies pain. Patient denies nausea vomiting. Patient denies chest pain shortness of breath. Patient denies abdominal pain. Patient denies increased urination. -: Sudden Improves with: medication, rest Worsens with: other (missed meds) Associated Symptoms: denies other symptoms. denies: confusion, chest pain, cough, diaphoresis, fever/chills, headaches, loss of appetite, malaise, nausea/vomiting, rash, seizure, shortness of breath, syncope, weakness - Related Data Home Medications Medication Instructions Recorded Confirmed Last Taken Loratadine 10 mg PO DAILY 05/14/17 05/14/17 Unknown metFORMIN [Glucophage] 1,000 mg PO BID 05/14/17 05/14/17 Unknown Previous Rx's Medication Instructions Recorded Last Taken Type Lisinopril/Hydrochlorothiazide 1 tab PO DAILY #30 tablet 10/11/14 10/23/16 Rx [Zestoretic 20-25 mg] Naproxen [Naprosyn TAB] 500 mg PO BID #20 tablet 03/18/15 10/23/16 Rx traMADol [Ultram 50 MG tab] 50 mg PO TID PRN #30 tablet 05/14/17 Unknown Rx Acetaminophen [Acetaminophen TAB] 500 mg PO Q6HR PRN #60 tablet 05/27/17 Unknown Rx Diclofenac Sodium [Voltaren] 100 gm TP TID #1 tube 05/27/17 Unknown Rx traMADol [Ultram 50 MG tab] 50 mg PO Q8HR PRN #10 tablet 05/27/17 Unknown Rx Acetaminophen [Tylenol Arthritis] 650 mg PO Q8H #30 tablet.er 10/09/17 Unknown Rx Ibuprofen 600 mg PO Q8H #30 tablet 10/09/17 Unknown Rx Glimepiride [Amaryl] 4 mg PO BID 10 Days #20 tablet 07/06/19 Unknown Rx Allergies Allergy/AdvReac Type Severity Reaction Status Date / Time No Known Allergies Allergy Verified 10/15/16 11:15 ED Review of Systems ROS: Stated complaint: HIGH BLOOD SUGAR/FEET TINGLING Other details as noted in HPI Constitutional: denies: chills, fever Eyes: denies: eye pain, eye discharge, vision change ENT: denies: ear pain, throat pain Respiratory: denies: cough, shortness of breath, wheezing Cardiovascular: denies: chest pain, palpitations Endocrine: no symptoms reported Gastrointestinal: denies: abdominal pain, nausea, diarrhea Genitourinary: denies: urgency, dysuria, discharge Musculoskeletal: denies: back pain, joint swelling, arthralgia Skin: denies: rash, lesions Neurological: denies: headache, weakness, paresthesias Psychiatric: denies: anxiety, depression Hematological/Lymphatic: denies: easy bleeding, easy bruising ED Past Medical Hx - Past Medical History Previous Medical History?: Yes Hx Hypertension: Yes Hx CVA: No Hx Heart Attack/AMI: No Hx Congestive Heart Failure: No Hx Diabetes: Yes Hx Deep Vein Thrombosis: No Hx Pulmonary Embolism: No Hx GERD: No Hx Liver Disease: No Hx Renal Disease: No Hx Sickle Cell Disease: No Hx Arthritis: Yes Hx Headaches / Migraines: No Hx Seizures: No Hx Kidney Stones: No Hx Psychiatric Treatment: No Hx Asthma: No Hx COPD: No Hx Tuberculosis: No Hx Dementia: No Hx HIV: No Additional medical history: SARCODOSIS - Surgical History Past Surgical History?: Yes Hx Coronary Stent: No Hx Open Heart Surgery: No Hx Pacemaker: No Hx Internal Defibrillator: No Hx Cholecystectomy: No Hx Appendectomy: No Hx Breast Surgery: No Additional Surgical History: TUBAL LIGATION - Family History Family history: no significant - Social History Smoking Status: Never Smoker Substance Use Type: None - Medications Home Medications: Home Medications Medication Instructions Recorded Confirmed Last Taken Type Lisinopril/Hydrochlorothiazide 1 tab PO DAILY #30 tablet 10/11/14 05/14/17 10/23/16 Rx [Zestoretic 20-25 mg] Naproxen [Naprosyn TAB] 500 mg PO BID #20 tablet 03/18/15 05/14/17 10/23/16 Rx Loratadine 10 mg PO DAILY 05/14/17 05/14/17 Unknown History metFORMIN [Glucophage] 1,000 mg PO BID 05/14/17 05/14/17 Unknown History traMADol [Ultram 50 MG tab] 50 mg PO TID PRN #30 tablet 05/14/17 Unknown Rx Acetaminophen [Acetaminophen TAB] 500 mg PO Q6HR PRN #60 tablet 05/27/17 Unknown Rx Diclofenac Sodium [Voltaren] 100 gm TP TID #1 tube 05/27/17 Unknown Rx traMADol [Ultram 50 MG tab] 50 mg PO Q8HR PRN #10 tablet 05/27/17 Unknown Rx Acetaminophen [Tylenol Arthritis] 650 mg PO Q8H #30 tablet.er 10/09/17 Unknown Rx Ibuprofen 600 mg PO Q8H #30 tablet 10/09/17 Unknown Rx Glimepiride [Amaryl] 4 mg PO BID 10 Days #20 tablet 07/06/19 Unknown Rx ED Physical Exam - General Limitations: No Limitations General appearance: alert, in no apparent distress - Head Head exam: Present: atraumatic, normocephalic - Eye Eye exam: Present: normal appearance - ENT ENT exam: Present: mucous membranes moist - Neck Neck exam: Present: normal inspection - Respiratory Respiratory exam: Present: normal lung sounds bilaterally. Absent: respiratory distress - Cardiovascular Cardiovascular Exam: Present: regular rate, normal rhythm. Absent: systolic murmur, diastolic murmur, rubs, gallop - GI/Abdominal GI/Abdominal exam: Present: soft, normal bowel sounds - Extremities Exam Extremities exam: Present: normal inspection - Back Exam Back exam: Present: normal inspection - Neurological Exam Neurological exam: Present: alert, oriented X3 - Psychiatric Psychiatric exam: Present: normal affect, normal mood - Skin Skin exam: Present: warm, dry, intact, normal color. Absent: rash ED Course Vital Signs 07/06/19 06:03 Temperature 98.3 F Pulse Rate 103 H Respiratory 18 Rate Blood Pressure 172/85 O2 Sat by Pulse 97 Oximetry - Reevaluation(s) Reevaluation #1: I discussed all results with patient. Patient is stable for discharge. Patient will be discharged home. Patient agrees with plan of care. Patient given discharge instructions. Patient voiced understanding discharge instructions. 07/06/19 08:06 ED Medical Decision Making - Lab Data Result diagrams: 07/06/19 06:19 07/06/19 06:19 - Medical Decision Making Patient is 64-year-old female that presents emergency room for medication refill. Patient complaining of hyperglycemia. Patient will be given a refill of her Amaryl. Patient labs unremarkable except for hyperglycemia. Patient stable for discharge. Patient discharged home. Patient instructed to follow-up with her primary care regularly. - Differential Diagnosis diabetes. Missed medications. Refill. Hyperglycemia. Critical care attestation.: If time is entered above; I have spent that time in minutes in the direct care of this critically ill patient, excluding procedure time. ED Disposition Clinical Impression: Medication refill Diabetes Qualifiers: Diabetes mellitus type: type 2 Diabetes mellitus microstrategy architect insulin use: without senior living use Diabetes mellitus complication status: without complication Qualified Code(s): E11.9 - Type 2 diabetes mellitus without complications Disposition: TO HOME OR SELFCARE Is pt being admited?: No Does the pt Need Aspirin: No Condition: Stable Instructions: Diabetes Mellitus Type 2 in Adults (ED) Additional Instructions: Patient to follow up with primary care in 2-3 days. Patient to eat a heart healthy and diabetic diet. Patient to return to ER if condition worsens. Patient to take meds as directed. Patient increase water. . Patient to take Tylenol or ibuprofen when necessary for pain. Prescriptions: Glimepiride [Amaryl] 4 mg PO BID 10 Days #20 tablet Referrals: LIBBY MACKENZIE MD [Primary Care Provider] - 2-3 Days Time of Disposition: 08:08
== END 2019-07-06 08:16 | disposition home or self-care (01) ==
LOC: ED 05:18
DX: E11.65 Type 2 diabetes mellitus with hyperglycemia (principal); I10 Essential (primary) hypertension; M19.90 Unspecified osteoarthritis, unspecified site; Z98.51 Tubal ligation status; Z79.899 Other long term (current) drug therapy; Z76.0 Encounter for issue of repeat prescription
CPT/HCPCS: 36415; 80048; 82962; 85025

== ENCOUNTER 2019-11-12 17:50 | Emergency (ER) | payer MEDICARE ==
[2019-11-12 20:14] VITALS: BP 156/75
--- NOTE | 2019-11-12 20:21 | Emergency Department Report ---
ED General Adult HPI - General Chief complaint: Hyperglycemia Stated complaint: FREQUENT URINATION/HBS/DIZZY Time Seen by Provider: 11/12/19 20:12 Source: patient Mode of arrival: Ambulatory Limitations: No Limitations - History of Present Illness Initial comments: noticed blood sugar was elevated today. She ran out of her medications a few days. ago. Consistency: constant Improves with: none Worsens with: none Associated Symptoms: denies: confusion, diaphoresis, headaches, nausea/vomiting, shortness of breath, syncope, weakness Treatments Prior to Arrival: none - Related Data Previous Rx's Medication Instructions Recorded Last Taken Type Lisinopril/Hydrochlorothiazide 1 tab PO DAILY #30 tablet 10/11/14 10/23/16 Rx [Zestoretic 20-25 mg] Naproxen [Naprosyn TAB] 500 mg PO BID #20 tablet 03/18/15 10/23/16 Rx traMADoL [Ultram 50 MG tab] 50 mg PO TID PRN #30 tablet 05/14/17 Unknown Rx Acetaminophen [Acetaminophen TAB] 500 mg PO Q6HR PRN #60 tablet 05/27/17 Unknown Rx Diclofenac Sodium [Voltaren] 100 gm TP TID #1 tube 05/27/17 Unknown Rx traMADoL [Ultram 50 MG tab] 50 mg PO Q8HR PRN #10 tablet 05/27/17 Unknown Rx Acetaminophen [Tylenol Arthritis] 650 mg PO Q8H #30 tablet.er 10/09/17 Unknown Rx Ibuprofen 600 mg PO Q8H #30 tablet 10/09/17 Unknown Rx Glimepiride [Amaryl] 4 mg PO BID 10 Days #20 tablet 11/12/19 Unknown Rx Lisinopril/Hydrochlorothiazide 1 tab PO QDAY #20 tab 11/12/19 Unknown Rx [Zestoretic 20-25 mg] Loratadine 10 mg PO DAILY #30 11/12/19 Unknown Rx metFORMIN [Glucophage] 1,000 mg PO BID #30 11/12/19 Unknown Rx Allergies Allergy/AdvReac Type Severity Reaction Status Date / Time No Known Allergies Allergy Verified 10/15/16 11:15 ED Review of Systems ROS: Stated complaint: FREQUENT URINATION/HBS/DIZZY Other details as noted in HPI Comment: All other systems reviewed and negative ED Past Medical Hx - Past Medical History Previous Medical History?: Yes Hx Hypertension: Yes Hx CVA: No Hx Heart Attack/AMI: No Hx Congestive Heart Failure: No Hx Diabetes: Yes Hx Deep Vein Thrombosis: No Hx Pulmonary Embolism: No Hx GERD: No Hx Liver Disease: No Hx Renal Disease: No Hx Sickle Cell Disease: No Hx Arthritis: Yes Hx Headaches / Migraines: No Hx Seizures: No Hx Kidney Stones: No Hx Psychiatric Treatment: No Hx Asthma: No Hx COPD: No Hx Tuberculosis: No Hx Dementia: No Hx HIV: No Additional medical history: SARCODOSIS - Surgical History Past Surgical History?: Yes Hx Coronary Stent: No Hx Open Heart Surgery: No Hx Pacemaker: No Hx Internal Defibrillator: No Hx Cholecystectomy: No Hx Appendectomy: No Hx Breast Surgery: No Additional Surgical History: TUBAL LIGATION - Social History Smoking Status: Never Smoker Substance Use Type: None - Medications Home Medications: Home Medications Medication Instructions Recorded Confirmed Last Taken Type Lisinopril/Hydrochlorothiazide 1 tab PO DAILY #30 tablet 10/11/14 05/14/17 10/23/16 Rx [Zestoretic 20-25 mg] Naproxen [Naprosyn TAB] 500 mg PO BID #20 tablet 03/18/15 05/14/17 10/23/16 Rx traMADoL [Ultram 50 MG tab] 50 mg PO TID PRN #30 tablet 05/14/17 Unknown Rx Acetaminophen [Acetaminophen TAB] 500 mg PO Q6HR PRN #60 tablet 05/27/17 Unknown Rx Diclofenac Sodium [Voltaren] 100 gm TP TID #1 tube 05/27/17 Unknown Rx traMADoL [Ultram 50 MG tab] 50 mg PO Q8HR PRN #10 tablet 05/27/17 Unknown Rx Acetaminophen [Tylenol Arthritis] 650 mg PO Q8H #30 tablet.er 10/09/17 Unknown Rx Ibuprofen 600 mg PO Q8H #30 tablet 10/09/17 Unknown Rx Glimepiride [Amaryl] 4 mg PO BID 10 Days #20 tablet 11/12/19 Unknown Rx Lisinopril/Hydrochlorothiazide 1 tab PO QDAY #20 tab 11/12/19 Unknown Rx [Zestoretic 20-25 mg] Loratadine 10 mg PO DAILY #30 11/12/19 Unknown Rx metFORMIN [Glucophage] 1,000 mg PO BID #30 11/12/19 Unknown Rx ED Physical Exam - General Limitations: No Limitations General appearance: alert, in no apparent distress - Head Head exam: Present: atraumatic, normocephalic - Eye Eye exam: Present: normal appearance, PERRL, EOMI Pupils: Present: normal accommodation - ENT ENT exam: Present: normal exam, mucous membranes moist - Neck Neck exam: Present: normal inspection - Respiratory Respiratory exam: Present: normal lung sounds bilaterally. Absent: respiratory distress - Cardiovascular Cardiovascular Exam: Present: regular rate, normal rhythm. Absent: systolic murmur, diastolic murmur, rubs, gallop - GI/Abdominal GI/Abdominal exam: Present: soft, normal bowel sounds - Extremities Exam Extremities exam: Present: normal inspection - Back Exam Back exam: Present: normal inspection - Neurological Exam Neurological exam: Present: alert, oriented X3 - Psychiatric Psychiatric exam: Present: normal affect, normal mood - Skin Skin exam: Present: warm, dry, intact, normal color. Absent: rash ED Course Vital Signs 11/12/19 20:12 Temperature 98.5 F Pulse Rate 79 Respiratory 18 Rate Blood Pressure 156/75 O2 Sat by Pulse 100 Oximetry ED Medical Decision Making - Medical Decision Making Patients presentation most consistent with hyperglycemic state without evidence of DKA. She has been out of her medications a few days prior to noticing elevation in her glucose. No fever or chills . No chest pain or sob. No fever or dizzziness. no syncope. no dysuria. Given Exam, History, and Workup I have low suspicion for an emergent precipitating factor of this hyperglycemic state such as atypical [place], acute abdomen, or other serious bacterial illness. Patient is Type 2 Diabetic with changes in medication regimen/adherence. Offered Labs which she refused saying she felt fine only needed medication refill. Critical care attestation.: If time is entered above; I have spent that time in minutes in the direct care of this critically ill patient, excluding procedure time. ED Disposition Clinical Impression: Medication refill, Hyperglycemia Disposition: DC-01 TO HOME OR SELFCARE Is pt being admited?: No Does the pt Need Aspirin: No Condition: Stable Instructions: Diabetic Hyperglycemia (ED) Prescriptions: Glimepiride [Amaryl] 4 mg PO BID 10 Days #20 tablet metFORMIN [Glucophage] 1,000 mg PO BID #30 Loratadine 10 mg PO DAILY #30 Lisinopril/Hydrochlorothiazide [Zestoretic 20-25 mg] 1 tab PO QDAY #20 tab Referrals: JEROME LAMB MD [Referring] - 3-5 Days
== END 2019-11-12 21:02 | disposition home or self-care (01) ==
LOC: ED 17:50
DX: E11.65 Type 2 diabetes mellitus with hyperglycemia (principal); I10 Essential (primary) hypertension; M19.90 Unspecified osteoarthritis, unspecified site; Z98.51 Tubal ligation status; Z79.899 Other long term (current) drug therapy; Z76.0 Encounter for issue of repeat prescription
CPT/HCPCS: 82962; 99282